=== PATIENT | male | born 1980 | race Caucasian/White ===

== ENCOUNTER 2021-03-05 19:31 | Emergency (ER) | payer OTHER ==
[2021-03-05 20:32] LABS: BASOPHILS # (AUTO) 0.1 10^3/uL (0.0-0.1); BASOPHILS % (AUTO) 1.4 %; EOSINOPHILS # (AUTO) 0.2 10^3/uL (0.0-0.7); EOSINOPHILS % (AUTO) 2.6 %; HCT - HEMATOCRIT 43.1 % (42.0-52.0); LYMPHOCYTES # (AUTO) 3.5 10^3/uL (1.5-3.5); LYMPHOCYTES % (AUTO) 44.3 %; MEAN CORPUSCULAR HEMOGLOBIN 28.9 pg (27.0-31.0); MEAN CORPUSCULAR HGB CONC 34.8 g/dL (32.0-36.0); MONOCYTES # (AUTO) 0.6 10^3/uL (0.0-1.0); MONOCYTES % (AUTO) 7.4 %; NEUTROPHILS # (AUTO) 3.4 10^3/uL (1.5-6.6); NEUTROPHILS % (AUTO) 44.2 %; PLT - PLATELET COUNT 252 10^3/uL (130-450); RED BLOOD COUNT 5.19 10^6/uL (4.70-6.10); RED CELL DISTRIBUTION WIDTH 13.8 % (12.0-15.0); WHITE BLOOD COUNT 7.8 x10^3/uL (4.8-10.8)
[2021-03-05 20:43] LABS: ALBUMIN 4.6 g/dL (3.2-5.5); ALBUMIN/GLOBULIN RATIO 1.7 (1.0-2.2); BILIRUBIN,TOTAL 0.4 mg/dL (0.2-1.0); CALCIUM 9.4 mg/dL (8.5-10.3); CREATININE 0.9 mg/dL (0.6-1.2); TOTAL PROTEIN 7.3 g/dL (6.7-8.2)
--- NOTE | 2021-03-05 20:49 | ED Physician Documentation ---
PD HPI ABD PAIN - Stated complaint Stated Complaint: ABD PX - Chief complaint Chief Complaint: Abd Pain - History obtained from History obtained from: Patient - Additional information Additional information: Patient comes emergency department chief complaint of left inguinal bulge and pain that started about 2 days ago. Patient states he has been moving and holding the left boxes and furniture. He states that any straining or movement makes the pain worse. No back pain. No difficulty controlling bowels or bladder. Patient does note that he was unable to attain an erection last night when having sexual intercourse with his . He states this is similar to symptoms he had when he had his inguinal hernia on the right several years ago. Patient states this is since been repaired. No fever or chills. No dysuria or hematuria. No nausea or vomiting. No other complaints at this time. Patient is otherwise fairly healthy. Review of Systems Ten Systems: 10 systems reviewed and negative Constitutional: reports: Reviewed and negative Eyes: reports: Reviewed and negative Ears: reports: Reviewed and negative Nose: reports: Reviewed and negative Throat: reports: Reviewed and negative Cardiac: reports: Reviewed and negative Respiratory: reports: Reviewed and negative GI: reports: Abdominal Pain : reports: Reviewed and negative Skin: reports: Reviewed and negative Musculoskeletal: reports: Reviewed and negative Neurologic: reports: Reviewed and negative Psychiatric: reports: Reviewed and negative Endocrine: reports: Reviewed and negative Immunocompromised: reports: Reviewed and negative PD PAST MEDICAL HISTORY - Past Medical History Past Medical History: Yes Cardiovascular: High cholesterol Psych: Depression Other Past Medical History: hiatal hernia - Past Surgical History Past Surgical History: Yes - Present Medications Home Medications: Ambulatory Orders Medication Instructions Recorded Confirmed Escitalopram [Lexapro] 20 mg PO DAILY 03/05/21 03/05/21 - Allergies Allergies/Adverse Reactions: Allergies Allergy/AdvReac Type Severity Reaction Status Date / Time No Known Drug Allergies Allergy Verified 03/05/21 19:33 - Social History Does the pt smoke?: Yes Smoking Status: Current every day smoker Does the pt drink ETOH?: Yes Does the pt have substance abuse?: No - Immunizations Immunizations are current?: Yes - POLST Patient has POLST: No PD ED PE NORMAL - Vitals Vital signs reviewed: Yes - General General: Alert and oriented X 3, No acute distress - HEENT HEENT: Atraumatic, PERRL, EOMI, Moist mucous membranes - Neck Neck: Supple, no meningeal sign - Cardiac Cardiac: RRR, No murmur - Respiratory Respiratory: No respiratory distress, Clear bilaterally - Abdomen Abdomen: Soft, Non distended, Other (Left inguinal bulge moderately tender. Reducible, soft.) - Male Male : Other (No scrotal edema. No skin changes.) - Derm Derm: Normal color, Warm and dry, No rash - Extremities Extremities: No deformity, No edema - Neuro Neuro: Alert and oriented X 3, car carder 2-12 intact, Normal speech, Other (Grossly normal) - Psych Psych: Normal mood, Normal affect Results - Vitals Vitals: Vital Signs - 24 hr 03/05/21 03/05/21 03/05/21 19:34 19:36 21:36 Temperature 36.5 C 36.5 C 36.5 C Heart Rate 80 80 80 Respiratory 16 16 16 Rate Blood Pressure 149/80 H 149/80 H 140/78 H O2 Saturation 98 98 99 03/05/21 03/05/21 23:00 23:29 Temperature 36.6 C 36.6 C Heart Rate 79 79 Respiratory 16 16 Rate Blood Pressure 135/72 H 135/72 H O2 Saturation 99 99 Oxygen O2 Source Room air - Labs Labs: Laboratory Tests 03/05/21 03/05/21 20:25 20:25 WBC 7.8 RBC 5.19 Hgb 15.0 Hct 43.1 MCV 83.0 MCH 28.9 MCHC 34.8 RDW 13.8 Plt Count 252 MPV 12.0 H Neut # (Auto) 3.4 Lymph # (Auto) 3.5 [place] # (Auto) 0.6 Eos # (Auto) 0.2 Baso # (Auto) 0.1 Absolute Nucleated RBC 0.00 Nucleated RBC % 0.0 Sodium 139 Potassium 4.0 Chloride 104 Carbon Dioxide 26 Anion Gap 9.0 BUN 13 Creatinine 0.9 Estimated GFR (MDRD) 93 Glucose 97 Calcium 9.4 Total Bilirubin 0.4 AST 21 ALT 25 Alkaline Phosphatase 62 Total Protein 7.3 Albumin 4.6 Globulin 2.7 Albumin/Globulin Ratio 1.7 Lipase 35 - Rads (name of study) Ct abd/pelvis Radiology: Final report received, EMP read indepedently, See rad report (Small, L fat-containing inguinal hernia; O/w NAD) PD MEDICAL DECISION MAKING - ED course Complexity details: reviewed results, re-evaluated patient, considered differential, d/w patient ED course: Patient was worked up with labs, as well as CT scan of the abdomen and pelvis. He declined symptomatic management in the ED. CT she did show a small, fat- containing left inguinal hernia. I discussed with the patient that while no emergent intervention is indicated at this time, the patient should consider following up with surgery to discuss further options electively. He for now is advised to avoid any heavy lifting or any other activities that causes strain to his abdominal cavity or the direct area of the hernia. We have discussed the usual indications for return. Departure - Departure Disposition: 01 Home, Self Care Clinical Impression: Inguinal hernia of left side without obstruction or gangrene Condition: Stable Instructions: ED Hernia Inguinal Follow-Up: Courtney Dorado MD [Provider Admit Priv/Credential] - Comments: The CT scan shows a hernia that contains some fat, but no bowel. At this time, it is recommended that you avoid any activities that cause you to strain. Please follow up with the surgeons to discuss repair of your hernia. Discharge Date/Time: 03/05/21 23:30
[2021-03-05] MEDS ORDERED: IOVERSOL 320 100 ML VIAL IVP ONE ×2 (21:09→22:06)
[2021-03-05 23:00] VITALS: BP 135/72
--- NOTE | 2021-03-06 08:01 | CT Report ---
PROCEDURE: Abdomen/Pelvis W INDICATIONS: L inguinal pain CONTRAST: IV CONTRAST: Optiray 320 ml: 100 PO CONTRAST: *NO PO CONTRAST TECHNIQUE: After the administration of intravenous contrast, 5 mm thick sections acquired from the diaphragms to the symphysis. 5 mm thick coronal and sagittal reformats were acquired. For radiation dose reducti on, the following was used: automated exposure control, adjustment of mA and/or kV according to antwan ent size. COMPARISON: None. FINDINGS: Image quality: Excellent. ABDOMEN: Lung bases: There is minimal dependent atelectasis. Heart size is normal. Solid organs: There is hypoattenuation of the liver consistent with fatty infiltration. Gallbladder a ppears within normal limits without calcified gallstones. Biliary system is non dilated. The spleen is normal in size. Pancreas enhances normally without peripancreatic fat stranding or fluid collectio ns. No adrenal nodules. Kidneys demonstrate no hydronephrosis. Peritoneum and bowel: Bowel loops demonstrate normal wall thickness and caliber. The appendix is no rmal in appearance. There is colonic diverticulosis without acute diverticulitis. No free fluid or ai r. Nodes and vessels: No retroperitoneal or mesenteric adenopathy by size criteria. Aorta and inferior vena cava are normal in size. Miscellaneous: No ventral hernias. PELVIS: Genitourinary: Bladder wall thickness is normal. Miscellaneous: There is a small fat-containing left inguinal hernia. No inguinal adenopathy. Bones: No suspicious bony lesions. No vertebral body compression fractures. IMPRESSION: 1. Small fat-containing left inguinal hernia. No evidence of bowel herniation. 2. Colonic diverticulosis without acute diverticulitis. Concordant with preliminary report. Reviewed by: Javad Alaniz MD on 03/06/2021 8:00 AM PDT Approved by: Javad Alaniz MD on 03/06/2021 8:00 AM PDT Station ID: [id number]
== END 2021-03-05 23:30 | disposition home or self-care (01) ==
LOC: ED 19:31
DX: K40.90 Unilateral inguinal hernia, without obstruction or gangrene, not specified as recurrent (principal); F17.200 Nicotine dependence, unspecified, uncomplicated
CPT/HCPCS: 36415; 74177; 80053; 83690; 85025; 99284; Q9967

== ENCOUNTER 2021-04-09 09:47 | Outpatient (CLI) | payer OTHER ==
[2021-04-09 11:04] VITALS: BP 131/90
--- NOTE | 2021-04-09 11:04 | SLEEP CARE CONSULTATION ---
Information from patient questionnaire entered by Mckayla Linares. I have reviewed and concur with the information entered by Mckayla Linares. This document represents the service I personally performed and the decisions made by me, Corin Youngblood ARNP. History of Present Illness Service Date and Time: 04/09/2021 0947 Reason for Visit: New patient Chief Complaint: reports: Insomnia, Unrefreshed sleep, Snoring, Excessive daytime sleepiness, Observed pauses in breathing, Fatigue, Frequent awakenings at night, Other (choking while sleeping) Date of Onset: at least 10 years Usual bedtime: 9 pm - 5 am Time it takes to fall asleep: 1 hour or more Snores at night: Yes Observed to quit breathing while asleep: Yes Sleeps alone due to snoring: No Number of times waking at night: numerous Reasons for waking at night: reports: Choking, Snoring, Gasping for air Toss, Turn, or Twitch while sleeping: Yes Recalls having dreams: Yes Usually gets out of bed at: depends; 5 AM Feels refreshed in the morning: No Morning headache: Yes (resloves in a couple hours; 3-4 times a week) Sleepy or fatigued during the day: Yes Ever fallen asleep while driving: Yes (drowsy driving, no accidents) Takes day naps: Yes (last 3 months, daily; progressively more tired during the day) Dreams during day naps: Yes Prior sleep studies: No Additional HPI information: I had the pleasure of seeing JOVANNY IBANEZ today regarding the possibility of him having a sleep disorder. His current complaints are excessive daytime sleepiness, fatigue, frequent night awakenings, observed pauses in breathing, snoring and unrefreshed sleep. He has had a hard time sleeping through the night for a long time. He has snored for a long time but thought this was normal. About three months ago he from his and has felt more fatigued, but thinks it was coming on before the split. His mental health therapist for his depression encouraged him to be checked for sleep apnea. He snores very loudly and can be heard in next room. He has been told that he has pauses in breathing while asleep and has woken up gasping for air or choking. He has woken up taking deep breaths and feeling like he can't breathe. He goes to bed about 9 PM and on a good night he can be asleep in about an hour. He will wake up numerous times during the night as well for different reasons. He states generally many family members snore but he doesn't know of any having sleep apnea. 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 Patient is and lives in [place]. Have you smoked in the past 12 months: No Quit date: 2 months ago Alcohol use: No Caffeine use: Yes Caffeine amount and frequency: 2 cups daily Family History Family history of sleep disordered breathing: No (unknown) Allergies and Home Medications Drug allergies reviewed: Yes (NKDA) Home medication list reviewed: Yes Allergy and home medication list: Lipitor Escitalopram Review of Systems Weight gain over past 5 years: 30 Weight loss over past 5 years: 30 Cardiovascular: reports: high blood pressure Gastrointestinal: reports: nausea. denies: heartburn Neurological: denies: headaches, head trauma Psychiatric: reports: claustrophobia Ear/Nose/Throat: reports: wisdom teeth removed. denies: injury to nose, tonsillectomy Endocrine: reports: sluggishness. denies: thyroid disease Musculoskeletal: reports: joint pain Immunologic: reports: sneezing, allergies to food or environment (seasonal) Physical Exam Blood Pressure: 131/90 Cuff size: wrist Heart Rate: 66 O2 Saturation: 98 Height: 6 ft Weight: 218 lb Body Mass Index: 29.5 BMI Classification: Overweight Neck circumference: 17.1 (inches) Mouth and throat: narrow oropharynx Soft palate: long Hard palate: normal Uvula visualization: 25% Mallampati Class III Tongue: enlarged in size with teeth jackson on lateral edges Tonsils: 1+ Neck: normal w/o lymphadenopathy or thyromegaly Heart: regular rate and rhythm Lungs: clear bilaterally Impression and Plan 1. Suspected Obstructive Sleep Apnea-Hypopnea Syndrome, as suggested by a history of loud and irregular snoring, observed cessation of breath while asleep, gasping or choking in sleep, morning headache, frequent awakening during the night, unrefreshed sleep, cognitive impairment, and excessive daytime sleepiness. Narrow oropharynx and obesity are common predisposing factors for obstructive sleep apnea-hypopnea syndrome. I recommend proceeding to polysomnography to confirm the diagnosis and to assess severity. If the patient has significant sleep disordered breathing, a manual CPAP titration study will also be performed to find the optimal treatment pressure. I informed the patient of what the sleep studies involve and after some discussion, obtained agreement to proceed. The pathophysiology of obstructive sleep apnea-hypopnea syndrome was discussed with the patient and health risks of cardiovascular and cerebr ovascular disease if not treated. Risks of drowsy driving discussed in detail and patient advised to avoid long distance driving and to pulling unit floorhand at the first sign of drowsiness. Patient agreed to plan. * Schedule polysomnography +- manual CPAP titration study and return in 1-2 weeks after the study to discuss result and initiate therapy. * Avoid long distance driving or driving when feeling sleepy. * Avoid alcohol, sedative and muscle relaxant around bedtime. * Attempt to lose weight. * Review instructions provided by trained office staff on how to prepare for the sleep study. * Return for follow-up after sleep study completed. Counseling Topics: Weight loss health impact Visit Type: In Office Time Spent with Patient (minutes): 30 Provider Statement: I spent 100% of the Face to Face Visit with the patient with greater than 50% spent counseling the patient and coordination of care.
== END 2021-04-09 09:48 | disposition home or self-care (01) ==
LOC: SC 09:47
PROVIDERS: ATTEND Nurse Practitioner Family
DX: R06.83 Snoring (principal); R06.81 Apnea, not elsewhere classified; R51.9 Headache, unspecified; G47.8 Other sleep disorders; R41.89 Other symptoms and signs involving cognitive functions and awareness; G47.10 Hypersomnia, unspecified
CPT/HCPCS: 99203; 99212

== ENCOUNTER 2021-04-15 09:29 | Outpatient (CLI) | payer OTHER | END 2021-04-15 09:30 | disposition home or self-care (01) | LOC: SC 09:29 | PROVIDERS: ATTEND Nurse Practitioner Family | DX: R06.83 Snoring (principal); R06.81 Apnea, not elsewhere classified; R51.9 Headache, unspecified; G47.10 Hypersomnia, unspecified; G47.8 Other sleep disorders; R41.89 Other symptoms and signs involving cognitive functions and awareness | CPT/HCPCS: 95806 ==

== ENCOUNTER 2021-05-05 14:27 | Outpatient (CLI) | payer OTHER ==
--- NOTE | 2021-05-05 15:17 | SLEEP CARE CONSULTATION ---
Information from patient questionnaire entered by Mckayla Linares. I have reviewed and concur with the information entered by Mckayla Linares. This document represents the service I personally performed and the decisions made by , Corin Youngblood ARNP. History of Present Illness Service Date and Time: 05/05/20211426 Initial [place] Sleepiness Scale score: 17 (in 2020) Current [place] Sleepiness Scale score: 14 Additional HPI information: JOVANNY IBANEZ returns for follow up and results of the recently performed home sleep study. The patient was informed of the following findings: He was found to have no significant sleep disordered breathing with an average AHI of 0.8 and wong oxygen saturation of 85%. I explained the pathophysiology behind obstructive sleep apnea. Patient does not have sleep apnea and was advised how weight gain could increase the risk of developing sleep apnea in the future. I strongly encouraged the patient to lose weight. Patient has mild snoring. Snoring can be reduced by weight loss. Weight loss is best achieved with diet consult. Patient instructed to contact PCP for referral. Snoring can also be treated with an oral appliance from a dentist. Advised to check insurance coverage. In addition, an ENT evaluation can be do to see if other treatment is indicated. Patient does not drink alcohol. Patient was cautioned about risks of drowsy driving until sleepiness symptoms resolve. Sleep Study - Results Type of Sleep Study: Home sleep study Prior sleep studies: No Polysomnography/Home Sleep Study results: Physician Impression: The quality of the study is good. The length of the study is adequate (> 240 minutes). Please also see the tabulated and graphic data. 1. No significant sleep disordered breathing, with an AHI of 0.8/hr and wong SaO2 of 85%. During the study, the patient had 2 apneas (2 obstructive, 0 central, 0 mixed) and 6 hypopneas. The longest episode lasted 69.0 seconds. The few respiratory events occurred more frequently during supine sleep (supine AHI was 3.7 and non-supine, 0.57). 2. Hypoxemia (ICD-10 R09.02), minimal, with the lowest oxygen saturation of 85 % and 2.6 minutes with SaO2 under 90%. Baseline oxygen saturation was normal (Average oxygen saturation was 95%). Allergies and Home Medications Home medication list reviewed: Yes (no new meds) Review of Systems Review of systems same as previous: No (inguinal hernia surgery on April 22, 2021) Physical Exam Heart Rate: 71 O2 Saturation: 98 Height: 6 ft Weight: 213 lb Body Mass Index: 28.8 BMI Classification: Overweight Impression and Plan Snoring but no significant sleep disordered breathing. Patient advised that often weight loss will reduce snoring as well as apnea risk. An oral appliance can also be used for snoring. This would require a dental consultation. Patient cautioned not to use other online appliances as can cause bite issues. A list of accredited dentists in [facility] and one local dentist who makes oral appliances available in office. Patient is advised to check if insurance will cover. An ENT consult can also be helpful to determine if any other treatment is an option. * Attempt to lose weight * Avoid alcohol consumption near bedtime * The patient is cautioned about driving until sleepiness is completely resolved. * Return as needed. Counseling Topics: Weight loss health impact Visit Type: In Office Time Spent with Patient (minutes): 10 Provider Statement: I spent 100% of the Face to Face Visit with the patient with greater than 50% spent counseling the patient and coordination of care.
== END 2021-05-05 14:28 | disposition home or self-care (01) ==
LOC: SC 14:27
PROVIDERS: ATTEND Nurse Practitioner Family
DX: R06.83 Snoring (principal)
CPT/HCPCS: 99212

== ENCOUNTER 2022-02-13 21:24 | Day surgery (SDC) | payer OTHER ==
[2022-02-13 22:21] LABS: BILIRUBIN,URINE NEGATIVE (NEGATIVE); GLUCOSE, URINE (UA) NEGATIVE (NEGATIVE); KETONES,URINE (UA) NEGATIVE (NEGATIVE); LEUKOCYTE ESTERASE, URINE NEGATIVE (NEGATIVE); NITRITE,URINE NEGATIVE (NEGATIVE); OCCULT BLOOD,URINE NEGATIVE (NEGATIVE); PROTEIN,URINE NEGATIVE (NEGATIVE); UROBILINOGEN,URINE 0.2 (NORMAL) E.U./dL (NORMAL)
[2022-02-13 22:25] LABS: CLARITY,URINE CLEAR (CLEAR)
[2022-02-13 22:33] LABS: BASOPHILS # (AUTO) 0.1 10^3/uL (0.0-0.1); BASOPHILS % (AUTO) 0.6 %; EOSINOPHILS # (AUTO) 0.2 10^3/uL (0.0-0.7); EOSINOPHILS % (AUTO) 1.3 %; HCT - HEMATOCRIT 42.7 % (42.0-52.0); HGB - HEMOGLOBIN 14.8 g/dL (14.0-18.0); LYMPHOCYTES # (AUTO) 3.5 10^3/uL (1.5-3.5); LYMPHOCYTES % (AUTO) 27.4 %; MEAN CORPUSCULAR HEMOGLOBIN 28.6 pg (27.0-31.0); MEAN CORPUSCULAR HGB CONC 34.7 g/dL (32.0-36.0); MEAN CORPUSCULAR VOLUME 82.6 fL (80.0-94.0); MEAN PLATELET VOLUME 10.8 fL (7.4-11.4); MONOCYTES # (AUTO) 0.9 10^3/uL (0.0-1.0); MONOCYTES % (AUTO) 6.9 %; NEUTROPHILS % (AUTO) 63.6 %; PLT - PLATELET COUNT 248 10^3/uL (130-450); RED BLOOD COUNT 5.17 10^6/uL (4.70-6.10); RED CELL DISTRIBUTION WIDTH 13.3 % (12.0-15.0); WHITE BLOOD COUNT 12.6 x10^3/uL (4.8-10.8)
--- NOTE | 2022-02-13 22:40 | ED Physician Documentation ---
PD HPI ABD PAIN - Stated complaint Stated Complaint: ABD PX - Chief complaint Chief Complaint: Abd Pain - History obtained from History obtained from: Patient - History of Present Illness Timing - onset: Enter time (13:30), Today Timing - details: Gradual onset, Constant Pain level now: 8 Quality: Pain Location: Other Radiation: Other (does not radiate) Improved by: Other (no ameliorating factors) Worsened by: Palpation Associated symptoms: Nausea. No: Fever, Vomiting, Diarrhea, Constipation Similar symptoms before: Has not had sx before Recently seen: Not recently seen - Additional information Additional information: c/o right-sided abdominal pain, predominantly RLQ, since 1:30 PM today with n ausea but no vomiting. Has not had these symptoms before. Review of Systems Constitutional: denies: Fever, Chills, Sweats Cardiac: reports: Reviewed and negative Respiratory: reports: Reviewed and negative GI: reports: Abdominal Pain, Nausea. denies: Abdominal Swelling, Vomiting, Co nstipation, Diarrhea : denies: Dysuria, Frequency, Hematuria Musculoskeletal: reports: Reviewed and negative PD PAST MEDICAL HISTORY - Past Medical History Cardiovascular: High cholesterol Psych: Depression - Past Surgical History Past Surgical History: Yes - Present Medications Home Medications: Ambulatory Orders Medication Instructions Recorded Confirmed Venlafaxine ER [Effexor ER] 1 cap PO QPM 02/13/22 02/13/22 - Allergies Allergies/Adverse Reactions: Allergies Allergy/AdvReac Type Severity Reaction Status Date / Time No Known Drug Allergies Allergy Verified 02/13/22 21:54 - Social History Does the pt smoke?: Yes Smoking Status: Current every day smoker Does the pt drink ETOH?: Yes Does the pt have substance abuse?: No - Immunizations Immunizations are current?: Yes - POLST Patient has POLST: No PD ED PE NORMAL - Vitals Vital signs reviewed: Yes - General General: Alert and oriented X 3, No acute distress (NAD at rest, obvious painful discomfort with movement involving lower abdomen), Well developed/nourished - HEENT HEENT: Moist mucous membranes - Cardiac Cardiac: RRR, No murmur - Respiratory Respiratory: No respiratory distress, Clear bilaterally - Abdomen Abdomen: Soft, Non distended - Back Back: No CVA TTP - Derm Derm: Normal color, Warm and dry PD ED PE EXPANDED - Abdomen Abdomen: Tender to palpation, Guarding, Other ((+) Rovsings sign). No: Rebound Results - Vitals Vitals: Vital Signs - 24 hr 02/13/22 02/13/22 02/14/22 21:51 22:33 00:00 Temperature 37.1 C 36.7 C Heart Rate 74 68 73 Heart Rate [ Brachial] Respiratory 16 16 18 Rate Blood Pressure 148/93 H 149/94 H 154/96 H Blood Pressure [Left Brachial artery] O2 Saturation 99 99 100 02/14/22 02/14/22 03:18 07:57 Temperature 36.7 C 36.9 C Heart Rate Heart Rate [ 71 73 Brachial] Respiratory 18 19 Rate Blood Pressure Blood Pressure 152/91 H 145/85 H [Left Brachial artery] O2 Saturation 100 99 Oxygen O2 Source Room air - Labs Labs: Laboratory Tests 02/13/22 02/13/22 02/13/22 22:00 22:22 22:22 WBC 12.6 H RBC 5.17 Hgb 14.8 Hct 42.7 MCV 82.6 MCH 28.6 MCHC 34.7 RDW 13.3 Plt Count 248 MPV 10.8 Neut # (Auto) 8.0 H Lymph # (Auto) 3.5 [place] # (Auto) 0.9 Eos # (Auto) 0.2 Baso # (Auto) 0.1 Absolute Nucleated RBC 0.00 Nucleated RBC % 0.0 Sodium 140 Potassium 3.9 Chloride 102 Carbon Dioxide 26 Anion Gap 12.0 BUN 20 Creatinine 1.1 Estimated GFR (MDRD) 73 L Glucose 102 H Calcium 9.4 Total Bilirubin 0.4 AST 20 ALT 28 Alkaline Phosphatase 47 Total Protein 7.3 Albumin 4.4 Globulin 2.9 Albumin/Globulin Ratio 1.5 Lipase 46 Urine Color YELLOW Urine Clarity CLEAR Urine pH 6.0 Ur Specific [place] >=1.030 H Urine Protein NEGATIVE Urine Glucose (UA) NEGATIVE Urine Ketones NEGATIVE Urine Occult Blood NEGATIVE Urine Nitrite NEGATIVE Urine Bilirubin NEGATIVE Urine Urobilinogen 0.2 (NORMAL) Ur Leukocyte Esterase NEGATIVE Ur Microscopic Review NOT INDICATED Urine Culture Comments NOT INDICATED - Rads (name of study) CT A/P with IV contrast Radiology: Prelim report reviewed, See rad report PD MEDICAL DECISION MAKING - ED course Complexity details: reviewed results, re-evaluated patient, considered differential, d/w patient ED course: CT A/P reveals early appendicitis which is c/w patient's H+P. D/W Dr. Andrea, who came to ED to evaluate patient with plan to perform appendectomy later this morning. Departure - Departure Disposition: ED Transfer to [facility] Clinical Impression: Appendicitis Condition: Good Discharge Date/Time: 02/14/22 03:15
[2022-02-13 22:49] LABS: ALBUMIN 4.4 g/dL (3.2-5.5); ALBUMIN/GLOBULIN RATIO 1.5 (1.0-2.2); BILIRUBIN,TOTAL 0.4 mg/dL (0.2-1.0); CALCIUM 9.4 mg/dL (8.5-10.3); CREATININE 1.1 mg/dL (0.6-1.2); POTASSIUM 3.9 mmol/L (3.5-5.0); TOTAL PROTEIN 7.3 g/dL (6.7-8.2)
[2022-02-13] MEDS ORDERED: SODIUM CHLORIDE 0.9% 1,000 ML IV STA (22:52)
[2022-02-13] MEDS ORDERED: ONDANSETRON 4 MG/2 ML VIAL IVP STA (23:06)
[2022-02-13] MEDS ORDERED: MORPHINE 2 MG/ML CARPUJECT IVP STA (23:06)
[2022-02-13] MEDS ORDERED: IOVERSOL 320 100 ML VIAL IVP ONE ×2 (23:17→23:56)
--- NOTE | 2022-02-14 00:19 | CT Report ---
PROCEDURE: Abdomen/Pelvis W INDICATIONS: RLQ pain, tenderness CONTRAST: IV CONTRAST: Optiray 320 ml: 100 PO CONTRAST: *NO PO CONTRAST TECHNIQUE: After the administration of IV contrast, 5 mm thick sections acquired from the diaphragms to the symp hysis. 5 mm thick coronal and sagittal reformats were acquired. For radiation dose reduction, the f ollowing was used: automated exposure control, adjustment of mA and/or kV according to patient size. COMPARISON: 03/05/2021 FINDINGS: Image quality: Excellent. ABDOMEN: Lung bases: Lung bases are clear. Heart size is normal. Solid organs: Liver and spleen are normal in size and enhancement. Gallbladder wall does not appear thickened. Biliary system is non dilated. Pancreas enhances normally. No adrenal nodules. Kidn eys demonstrate normal size and enhancement, without hydronephrosis. Peritoneum and bowel: In this patient with this given history, scrutiny is given to the appendix. Th e appendix is mildly prominent and hyperenhancing, with the tip of the appendix measuring up to 7 mm. Minimal surrounding inflammatory change can be seen. No free air or focal fluid collections are seen. No dilated loops of small bowel are seen. Diverticulosis can be seen, without kristian findings of active diverticulitis. No additional significan t colonic abnormality can be seen. Nodes and vessels: No retroperitoneal or mesenteric adenopathy by size criteria. Aorta and inferior vena cava are normal in size. Miscellaneous: No ventral hernias. PELVIS: Genitourinary: Bladder wall thickness is normal. Miscellaneous: No inguinal hernias or adenopathy. The previously seen fat containing left inguinal hernia is no longer seen. Bones: No suspicious bony lesions. No vertebral body compression fractures. Focal L4-5 degenerativ e change is seen. IMPRESSION: Acute appendicitis. No findings of perforation or abscess can be seen. Incidental note is made of: Distal colonic diverticulosis, without findings of active diverticulitis. Focal L4-L5 degenerative change Interval left inguinal hernia repair Note: Case discussed by telephone with Dr. Min at 11:15 PM [place] time on 02/13/2022. Reviewed by: Ryan Ortiz MD on 02/13/2022 11:21 PM [facility] Approved by: Ryan Ortiz MD on 02/13/2022 11:21 PM [facility] Station ID: [id number]
[2022-02-14] MEDS ORDERED: ONDANSETRON 4 MG/2 ML VIAL IVP PRN ×2 (01:01→07:52)
[2022-02-14] MEDS ORDERED: SODIUM CHLORIDE FLUSH 0.9% 10 ML SYRINGE IVP PRN (01:01)
[2022-02-14] MEDS: MORPHINE 2 MG/ML CARPUJECT IVP PRN ×3 (01:48→06:55)
[2022-02-14] MEDS ORDERED: PIPERACILLIN/TAZOBACTAM 3.375 GM in SODIUM CHLORIDE 0.9% MINIBAG 100 ML IV STA (02:00)
[2022-02-14] MEDS ORDERED: LACTATED RINGERS 1,000 ML IV SCH ×2 (02:00→08:00)
--- NOTE | 2022-02-14 07:38 | ANESTHESIA ---
Pre-Anesthesia VS, & Labs - Diagnosis appendecitis - Procedure laparoscopic appendectomy Vital Signs: Temp Pulse Resp BP Pulse Ox 36.7 C 71 18 152/91 H 100 02/14/22 03:18 02/14/22 03:18 02/14/22 03:18 02/14/22 03:18 02/14/22 03:18 Height: 6 ft 1 in Weight (kg): 99.79 kg Body Mass Index: 29.0 BMI Classification: Overweight - NPO >8 hours - Lab Results Current Lab Results: Laboratory Tests 02/13/22 22:22: Sodium 140, Potassium 3.9, Chloride 102, Carbon Dioxide 26, Anion Gap 12.0, BUN 20, Creatinine 1.1, Estimated GFR (MDRD) 73 L, Glucose 102 H , Calcium 9.4, Total Bilirubin 0.4, AST 20, ALT 28, Alkaline Phosphatase 47, Total Protein 7.3, Albumin 4.4, Globulin 2.9, Albumin/Globulin Ratio 1.5, Lipase 46 02/13/22 22:22: WBC 12.6 H, RBC 5.17, Hgb 14.8, Hct 42.7, MCV 82.6, MCH 28.6, MCHC 34.7, RDW 13.3, Plt Count 248, MPV 10.8, Neut # (Auto) 8.0 H, Lymph # (Auto) 3.5, [place] # (Auto) 0.9, Eos # (Auto) 0.2, Baso # (Auto) 0.1, Absolute Nucleated RBC 0.00, Nucleated RBC % 0.0 Lab results reviewed: Yes Fish Bones: 02/13/22 22:22 02/13/22 22:22 Home Medications and Allergies Home Medications: Ambulatory Orders Venlafaxine ER [Effexor ER] 1 cap PO QPM 02/13/22 Active Medications Heparin Sodium (Porcine) (Heparin 5,000 Unit/Ml Vial) 5,000 unit SUBQ BID GANESH Lactated Ringer's (Lr) 1,000 mls @ 100 mls/hr IV .Q10H GANESH Last Admin: 02/14/22 03:16 Dose: 100 mls/hr Morphine Sulfate (Morphine 2 Mg/Ml Carpuject) 2 mg IVP Q2HR PRN PRN Reason: Pain 8 to 10 Last Admin: 02/14/22 06:55 Dose: 2 mg Ondansetron HCl (Ondansetron 4 Mg/2 Ml Vial) 4 mg IVP Q6HR PRN PRN Reason: Nausea / Vomiting Sodium Chloride (Sodium Chloride Flush 0.9% 10 Ml Syringe) 10 ml IVP PRN PRN PRN Reason: NEEDED PER PROVIDER ORDERS Last Admin: 02/14/22 03:17 Dose: 10 ml Sodium Chloride (Sodium Chloride Flush 0.9% 10 Ml Syringe) 10 ml IVP 0100,0900,1700 [facility] Venlafaxine ER [Effexor ER] 1 cap PO QPM 02/13/22 Allergies/Adverse Reactions: Allergies Allergy/AdvReac Type Severity Reaction Status Date / Time No Known Drug Allergies Allergy Verified 02/13/22 21:54 Anes History & Medical History - Anesthetic History Anesthesia Complications: reports: Emergence delirium Family history of Anesthesia Complications: Denies Family history of Malignant Hyperthermia: Denies - Medical History Cardiovascular: reports: High cholesterol Smoking Status: Current every day smoker Exam General: Alert, Oriented x3, Cooperative, No acute distress Dental: WNL Mouth Openin Fingerbreadth Neck Mobility: Normal Mallampati classification: II Plan Anesthesia Type: General Consent for Procedure(s) Verified and Reviewed: Yes Code Status: Attempt Resuscitation ASA classification: 2-Mild systemic disease Is this case an emergency?: No
[2022-02-14] MEDS ORDERED: KETOROLAC 30 MG/ML VIAL ONE (07:42)
[2022-02-14] MEDS ORDERED: PROPOFOL 200 MG/20 ML VIAL IVP ONE (07:42)
[2022-02-14] MEDS ORDERED: LIDOCAINE-MPF 2% 5 ML VIAL ONE (07:42)
[2022-02-14] MEDS ORDERED: DEXAMETHASONE 4 MG/ML VIAL ONE (07:42)
[2022-02-14] MEDS ORDERED: fentaNYL 100 MCG/2 ML VIAL ONE ×2 (07:42→09:48)
[2022-02-14] MEDS ORDERED: ROCURONIUM 50 MG/5 ML VIAL ONE (07:42)
[2022-02-14] MEDS ORDERED: ONDANSETRON 4 MG/2 ML VIAL ONE (07:42)
--- NOTE | 2022-02-14 07:43 | HISTORY & PHYSICAL EXAMINATION ---
Chief Complaint - Chief Complaint Chief Complaint: Abdominal pain History of Present Illness - Admitted From Admitted From:: ED - History of Present Illness HPI Comment/Other: 41 year old man who presents with abdominal pain. Pain started at 11am yesterday and was diffuse, then later localized to the right lower abdomen. He has had associated anorexia but no nausea, emesis, diarrhea. Worse with pressure and mov ement. No alleviating factors. Presented to ED because pain has been worsening throughout the day. History - Past Medical History Cardiovascular: reports: Hypertension, High cholesterol Psych: reports: Depression MRSA Hx?: No - Past Surgical History General: reports: Other (Bilateral open inguinal hernia repairs) - Family & Social History Family History Comment/Other: No family history of any genetic conditions Living arrangement: At home Living Situation: Other (with girlfriend, Nina. 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 ) - Substance History Tobacco Details: Other (Vapor tobacco) - POLST Patient has POLST: No Meds/Allgy - Home Medications Home Medications: Ambulatory Orders Medication Instructions Recorded Confirmed Venlafaxine ER [Effexor ER] 1 cap PO QPM 02/13/22 02/13/22 - Allergies Allergies/Adverse Reactions: Allergies Allergy/AdvReac Type Severity Reaction Status Date / Time No Known Drug Allergies Allergy Verified 02/13/22 21:54 Review of Systems - Constitutional Constitutional: reports: Poor appetite - Gastrointestinal Gastrointestinal: reports: Abdominal pain, Poor appetite. denies: Constipation, Diarrhea, Nausea, Vomiting - All Other Systems All Other Systems: reports: Reviewed and negative Exam - Vital Signs Reviewed Vital Signs: Yes Vital Signs: Vital Signs x48h Temp Pulse Pulse Resp BP BP Pulse Ox 02/14/22 03:18 36.7 C 71 18 152/91 H 100 02/14/22 00:00 73 18 154/96 H 100 - Physical Exam General Appearance: positive: No acute distress Eyes Bilateral: positive: Normal inspection ENT: positive: ENT inspection nml Neck: positive: Nml inspection Respiratory: positive: No respiratory distress Cardiovascular: positive: Regular rate & rhythm Abdomen: positive: Other (Soft, non distended, tender in right lower quadrant wi th voluntary guarding, positive Rovsing's sign. Bilateral groin scars without hernias.) Skin: positive: Color nml, No rash, Warm, Dry Extremities: positive: Full ROM, Nml appearance Neurologic/Psychiatric: positive: Oriented x3, CN's nml (2-12) Sepsis Event Note (H) - Evaluation Current Stage of Sepsis: Ruled out Conclusion/Plan - Problem List (1) Appendicitis Conclusion/Plan: Acute appendicitis: Start IV zosyn and plan for laparoscopic appendectomy. Surgical risks and benefits discussed. Kei Andrea MD Qualifiers: Appendicitis type: acute appendicitis Acute appendicitis type: with localized peritonitis Appendicitis gangrene presence: without gangrene Appendicitis perforation presence: without perforation Appendicitis abscess presence: without abscess Qualified Code(s): K35.30 - Acute appendicitis with localized peritonitis, without perforation or gangrene - Lab Results Lab results reviewed: Yes Fish Bones: 02/13/22 22:22 02/13/22 22:22 - Diagnostic Imaging Results Diagnostic Imaging Results: positive: Final report reviewed (Appendix borderline dilated with surrounding fat stranding)
[2022-02-14] MEDS ORDERED: NALOXONE 0.4 MG/ML VIAL IVP PRN (07:52)
[2022-02-14] MEDS ORDERED: MORPHINE 2 MG/ML CARPUJECT IVP PRN (07:52)
[2022-02-14] MEDS ORDERED: ePHEDrine 50 MG/ML VIAL IVP PRN (07:52)
[2022-02-14] MEDS ORDERED: HYDROmorphone 0.5 MG/0.5 ML SYRINGE IVP PRN (07:52)
[2022-02-14] MEDS ORDERED: ATROPINE ABBOJECT 1 MG/10 ML SYRINGE IVP PRN (07:52)
[2022-02-14] MEDS ORDERED: fentaNYL 100 MCG/2 ML VIAL IVP PRN (07:52)
[2022-02-14] MEDS ORDERED: METOCLOPRAMIDE 10 MG/2 ML VIAL IVP PRN (07:52)
[2022-02-14] MEDS ORDERED: MIDAZOLAM 2 MG/2 ML VIAL ONE (07:59)
[2022-02-14] MEDS ORDERED: BUPIVACAINE 0.5% PF 30 ML VIAL ONE (08:15)
[2022-02-14] MEDS ORDERED: LACTATED RINGERS 1,000 ML IV ONE ×2 (08:33→09:15)
[2022-02-14] MEDS ORDERED: SODIUM CHLORIDE FLUSH 0.9% 10 ML SYRINGE IVP SCH (09:00)
[2022-02-14] MEDS ORDERED: HEPARIN 5,000 UNIT/ML VIAL SUBQ SCH (09:00)
[2022-02-14] MEDS ORDERED: DEXMEDETOMIDINE 200 MCG/2 ML VIAL ONE (09:19)
[2022-02-14] MEDS ORDERED: SUGAMMADEX 200 MG/2 ML VIAL IVP ONE (09:35)
--- NOTE | 2022-02-14 09:58 | OPERATIVE REPORT ---
Operative Report - General Procedure Date: 02/14/22 Planned Procedure: Laparoscopic appendectomy Pre-Op Diagnosis: Acute appendicitis Procedure Performed: Laparoscopic appendectomy and umbilical hernia repair Post Op Diagnosis: Acute appendicitis and umbilical hernia - Procedure Note Primary Surgeon: Kei Andrea Anesthesia Provider: Charan Maciel Anesthesia Technique: General ET tube Estimated Blood Loss (mL): 5 (ml) Urine Output (mL): 100 (ml) Indications: 41 year old man who presented with one day of abdominal pain and found to have leukocytosis and CT demonstrating acute appendicitis. Findings: Inflamed appendix and fat containing umbilical hernia Complications: None apparent - Other Other Information/Narrative: After receiving preoperative antibiotics, the patient was taken tot he operating room where SCDs were placed. After starting general anesthesia, a rivas catheter was placed. THe abdomen was prepped and draped. Local anesthesia (0.5% bupivacaine) was administered at the infraumbilical skin where a transverse incision was then made and carried down to the fascia, where a fat containing umbilical hernia was encoutnered.. The peritoneal cavity was entered with Geovanni technique. A 12mm balloon trocar was placed and pneumoperitoneum achieved. A 10- 30 laparoscope was introduced and peritoneal contents inspected. An inflamed appendix was noted in the right lower quadrant. Two more 5mm ports were placed under direct vision in the suprapubic and left lower quadrant and the patient was positioned in trendelenburg and right side up. The appendix was grasped, mesoappendix taken with a LigaSure energy device, and appendix stapled at the base with a 30mm EndoGIA stapler intestinal laod. Some simple fluid in the abdomen was suctioned, and the staple line inspected demonstrating no bleeding or breakdown. The appendix was removed using an Endocatch bag, pneumoperitoneum evacuated, and trocars removed. The umbilical hernia was closed with 0-vicryl suture and all skin sites closed with 4-0 monocryl and surgical glue. All instrument coutns were reported correct. The rivas was removed, and patient was awakened and taken to the recovery room in good condition.
[2022-02-14] MEDS ORDERED: traMADol 50 MG TABLET PO PRN (10:09)
--- NOTE | 2022-02-14 10:16 | Discharge Plan ---
Discharge Plan Problem Reviewed?: Yes Disposition: 01 Home, Self Care Condition: Good Prescriptions: traMADol [Ultram] 50 mg PO Q6H PRN #10 tablet PRN Reason: Pain Diet: Regular Activity Restrictions: No heavy lifting for 4wk Shower Restrictions: No (Showers are okay, but no baths for 2 weeks) Driving Restrictions: Yes (No driving while taking Tramadol) Additional Instructions or Follow Up instructions: Call the general surgery clinic on a weekday to schedule to be seen for postop visit in 1-2 weeks No Smoking: If you smoke, Please STOP! Call for help.
--- NOTE | 2022-02-14 10:20 | ANESTHESIA POST OP EVALUATION ---
Anesthesia Post Eval - Post Anesthesia Eval Vitals: Last Vital Signs Temp 36.5 C 02/14/22 10:15 Pulse 77 02/14/22 10:15 Resp 18 02/14/22 10:15 BP 108/64 02/14/22 10:15 Pulse Ox 95 02/14/22 10:15 CV Function Including HR & BP: Stable Pain Control: Satisfactory Nausea & Vomiting: Negative Mental Status: Baseline Respiratory Status: Airway Patent Hydration Status: Satisfactory Anesthesia Complications: None
[2022-02-14 10:32] VITALS: BP 123/44
[2022-02-14] MEDS ORDERED: KETOROLAC 15 MG/ML VIAL IVP PRN (12:00)
== END 2022-02-14 14:55 | disposition home or self-care (01) ==
LOC: ED 21:24 → SDS 02-14 01:36 → MS3 02-14 02:23 → SDS 02-14 14:55
PROVIDERS: ATTEND Surgery
PROC: 0DTJ4ZZ Resection of Appendix, Percutaneous Endoscopic Approach (ICD-10-PCS; principal; 2022-02-14 08:15)
DX: K35.30 Acute appendicitis with localized peritonitis, without perforation or gangrene (principal); K42.9 Umbilical hernia without obstruction or gangrene; I10 Essential (primary) hypertension; F32.A Depression, unspecified; F17.290 Nicotine dependence, other tobacco product, uncomplicated
CPT/HCPCS: 36415; 44970; 74177; 80053; 81003; 83690; 85025; 96374; 96375; 99284; 99285; J7120; Q9967; 81001; 87086

== ENCOUNTER 2022-04-16 17:37 | Emergency (ER) | payer OTHER ==
[2022-04-16 17:53] VITALS: BP 162/98
--- OUTSIDE RECORDS SUMMARY | 2022-04-16 17:54 | EXTERNAL MEDICAL SUMMARY RPT | Continuity of Care Document ---
:1980 Author Organization [place] Address [address] [place] [address] Phone Allergies No information. Encounters No information. Functional Status No information. Immunizations No information. Medications date description facility +0000 escitalopram oxalate All +0000 escitalopram oxalate All +0000 escitalopram oxalate All [id number]+0000 escitalopram oxalate All Problems No information. Procedures No information. Results/Labs No information. Social History No information. Vital Signs date measurement value units +0000 BMI BMI 33.21 kg/m2 +0000 BP_diastolic BP_diastolic 89 mm[H g] +0000 BP_systolic BP_systolic 128 mm[Hg] +0000 heart_rate heart_rate 78 /min +0000 height_metric height_metric 182.88 cm +0000 height_standard height_standard 72 in +0000 respiration_rate respiration_rate 16 /min +0000 temperature_metric temperature_metric 36.22 C +0000 temperature_standard temperature_standard 9 7.2 F +0000 weight_metric weight_metric 110.68 kg +0000 weight_standard weight_standard 244 lb
--- NOTE | 2022-04-16 18:14 | XRAY Report ---
PROCEDURE: Hand 3 View LT INDICATIONS: Trauma TECHNIQUE: 3 views of the hand(s) acquired. COMPARISON: None FINDINGS: Bones: Minimally angulated fifth metacarpal neck fracture. This is seen best on the oblique view. Pro ximal and distal joints are normally aligned. No other fractures. No suspicious bony lesions. Soft tissues: No suspicious soft tissue calcifications. IMPRESSION: Minimally angulated fifth metacarpal neck fracture. Reviewed by: Alma García MD on 04/16/2022 6:13 PM PDT Approved by: Alma García MD on 04/16/2022 6:13 PM PDT Station ID: [id number]
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
== END 2022-04-16 19:11 | disposition home or self-care (01) ==
LOC: ED 17:37
DX: S62.367A Nondisplaced fracture of neck of fifth metacarpal bone, left hand, initial encounter for closed fracture (principal); W22.8XXA Striking against or struck by other objects, initial encounter; Y93.B9 Activity, other involving muscle strengthening exercises; F17.200 Nicotine dependence, unspecified, uncomplicated
CPT/HCPCS: 29125; 99283

== ENCOUNTER 2022-11-19 09:56 | Outpatient (CLI) | payer OTHER ==
[2022-11-19 10:19] VITALS: BP 140/90
--- NOTE | 2022-11-19 10:19 | SLEEP CARE CONSULTATION ---
Information from patient questionnaire entered by Dena Manning. I have reviewed and concur with the information entered by Dena Manning. This document represents the service I personally performed and the decisions made by me, Corin Youngblood ARNP. History of Present Illness Service Date and Time: 11/19/2022 0956 Reason for follow up: annual (LAST SEEN 04/2021 PT WANTS SLEEP STUDY SXS WORSE) Prior sleep studies: Yes Type of Sleep Study: Home sleep study HPI additional information: I had the pleasure of seeing JOVANNY IBANEZ today regarding the possibility of him having a sleep disorder. His current complaints are loud snoring, frequent night awakening, wake in up with sore throat, wakes up choking and unrefreshed sleep. The patient tells me that he normally goes to bed around 10 pm, and it takes him approximately 10-45 minutes to fall asleep depending on if he takes melatonin. He has been told that he snores loudly and irregularly at night. He has been observed to stop breathing in his sleep. His bed partner can still sleep in the same bed. He can recall waking up on the average of 3-4 times during the night. Most of the time he wakes up because of unknown, gasping or choking and snoring. He has occasionally awakened for his own snoring, choking, and having to gasp for air. There is a lot of tossing and turning in his sleep. Generally he can recall having dreams. He usually wakes up at [id number] and does not feel refreshed. He usually does have a morning headache. During the day he complains of feeling sleepy and fatigued. He has never fallen asleep while driving nor has any accide nt due to sleepiness. He usually naps for about 15-60 minutes during the day. If he naps, upon falling asleep during the day he admits to having vivid dreams. There is no somniloquy (sleep talking) but no somnambulism (sleep walking). He has never experienced sleep paralysis or symptoms of restless leg syndrome. He reports having impaired concentration during the day. Sleep Study - Results Type of Sleep Study: Home sleep study Prior sleep studies: No Subjective Initial [place] Sleepiness Scale score: 17 (in 2020) Current [place] Sleepiness Scale score: 12 (11/19/22) Allergies and Home Medications Known drug allergies: No Drug allergies reviewed: Yes Home medication list reviewed: Yes (Lipitor 20 mg dialy; temp Hydrocodone for pain) Review of Systems Review of systems same as previous: No (ganglion cyst removed from left wrist on 11/17/2022) Physical Exam Vital signs obtained and entered by: DENA Ricardo MA Blood Pressure: 140/90 (LEFT ARM) Cuff size: regular Heart Rate: 76 O2 Saturation: 96 Height: 6 ft 1 in Weight: 252 lb Weight change since last visit: 39 lb gain Body Mass Index: 33.2 BMI Classification: Obese Impression and Plan 1. Suspected Obstructive Sleep Apnea-Hypopnea Syndrome, as suggested by a hi story of loud and irregular snoring, observed cessation of breath while asleep, gasping or choking in sleep, frequent awakening during the night, unrefreshed sleep, cognitive impairment, and excessive daytime sleepiness. He has gained almost 40 pounds since his last sleep study. I recommend proceeding to polysomnography to confirm the diagnosis and to assess severity. I obtained agreement to proceed. The pathophysiology of obstructive sleep apnea-hypopnea syndrome was discussed with the patient and health risks of cardiovascular and cerebrovascular disease if not treated. Risks of drowsy driving discussed in detail and patient advised to avoid long distance driving and to veneer puller at the first sign of drowsiness. Patient agreed to plan. * Schedule polysomnography * Avoid long distance driving or driving when feeling sleepy. * Avoid alcohol, sedative and muscle relaxant around bedtime. * Attempt to lose weight. * Review instructions provided by trained office staff on how to prepare for the sleep study. * Return for follow-up after sleep study completed. Counseling Topics: Weight loss health impact Visit Type: In Office Time Spent with Patient (minutes): 20 Provider Statement: I spent 100% of the Face to Face Visit with the patient with greater than 50% spent counseling the patient and coordination of care.
== END 2022-11-19 09:57 | disposition home or self-care (01) ==
LOC: SC 09:56
PROVIDERS: ATTEND Nurse Practitioner Family
DX: R06.83 Snoring (principal); G47.8 Other sleep disorders; R06.81 Apnea, not elsewhere classified; R51.9 Headache, unspecified; G47.10 Hypersomnia, unspecified; I10 Essential (primary) hypertension; E66.9 Obesity, unspecified; Z68.33 Body mass index [BMI] 33.0-33.9, adult
CPT/HCPCS: 99212; 99213

== ENCOUNTER 2022-12-19 20:31 | Outpatient (CLI) | payer OTHER | END 2022-12-19 20:32 | disposition home or self-care (01) | LOC: SC 20:31 | PROVIDERS: ATTEND Nurse Practitioner Family | DX: G47.33 Obstructive sleep apnea (adult) (pediatric) (principal); E66.9 Obesity, unspecified; Z68.33 Body mass index [BMI] 33.0-33.9, adult | CPT/HCPCS: 95810 ==

== ENCOUNTER 2022-12-28 10:41 | Outpatient (CLI) | payer OTHER ==
[2022-12-28 11:21] VITALS: BP 128/88
--- NOTE | 2022-12-28 11:21 | SLEEP CARE CONSULTATION ---
Information from patient questionnaire entered by Marleny Manning. I have reviewed and concur with the information entered by Marleny Manning. This document represents the service I personally performed and the decisions made by me, Corin Youngblood ARNP. History of Present Illness Service Date and Time: 12/28/2022 1041 Initial [place] Sleepiness Scale score: 17 (in 2020) Current [place] Sleepiness Scale score: 14 (12/28/22) Additional HPI information: JOVANNY IBANEZ returns for follow up and results of the recently performed polysomnography. I explained the pathophysiology behind obstructive sleep apnea. We then spent quite a bit of time discussing different treatment options. For mild obstructive sleep apnea, surgery and oral appliance are alternatives to nasal CPAP therapy but in moderate or severe cases, nasal CPAP is the most effective and reliable treatment. Because apnea is primarily in supine position, then positional management therapy could be effective. Methods discussed such as positioning with pillows, using a T-shirt with tennis balls in the back or commercial products that have a pillow format on back to prevent supine sleep. I reviewed the impact of weight changes on sleep apnea and strongly recommended losing weight. After some discussion, the patient opted to go with the nasal CPAP therapy. Nasal autoCPAP set at 4-15 cmH20 will be ordered with rationale explained. A manual titration study will be ordered if unable to find optimal pressure with office adjustments. I explained how CPAP machine works and what to expect when using the machine. Using CPAP every night in order to get used to it was emphasized. Patient advised to put CPAP mask on before getting into bed so as not to fall asleep without CPAP. To assist acclimation to CPAP use, it could also be used for a short time during day while reading or watching TV. The patient was instructed to call the CPAP supplier to discuss any mechanical problem that may occur. If the mask given is uncomfortable or is difficult to keep on through the night even with adjustment, contact the CPAP supplier as many will replace with another mask style if notified before 30 days. If snoring or perceives is not getting enough air or too much air from the machine, notify this office. Patient does not drink alcohol. Patient was cautioned about risks of drowsy driving until sleepiness symptoms resolve. Sleep Study - Results Type of Sleep Study: Polysomnography (COMPLETED 12/19/22) Prior sleep studies: No Polysomnography/Home Sleep Study results: IMPRESSION: The quality of the study is good. The patient had minimally reduced sleep efficiency. The sleep architecture was abnormal for sleep fragmentation and reduced amount of time spent in slow wave sleep (N3). Respiratory monitoring showed mild obstructive sleep apnea-hypopnea (AHI = 8.7) associated with frequent arousals, oxyhemoglobin desaturation and mild hypoxia (wong oxygen saturation of 86%). The respiratory events occurred almost exclusively during supine sleep (supine AHI = 53.1; non-supine = 4.44). Snore was moderate in intensity. There was no significant periodic leg movement of sleep. Cardiac rhythm was normal sinus rhythm without significant arrhythmia. No abnormal behavior (parasomnia) observed during the night. Allergies and Home Medications Known drug allergies: No Drug allergies reviewed: Yes Home medication list reviewed: Yes (no changes) Review of Systems Review of systems same as previous: Yes (no changes) Physical Exam Vital signs obtained and entered by: MARLENY Ricardo MA Blood Pressure: 128/88 (LEFT ARM) Cuff size: regular Heart Rate: 85 O2 Saturation: 98 Height: 6 ft 1 in Weight: 247 lb 9.6 oz Body Mass Index: 32.6 BMI Classification: Obese Impression and Plan 1. Obstructive Sleep Apnea-Hypopnea Syndrome, mild, with lowest oxygen saturation of 86%. Obviously this is the cause of the patients symptoms of unrefreshed sleep, and excessive daytime sleepiness. Positive pressure therapy could benefit depression. As mentioned above, the patient will be started on nasal autoCPAP therapy with pressure set at 4-15 cmH2O. Compliance guidelines also reviewed. A copy of compliance guidelines will be given for reference at check out. Because the apnea is more severe supine, I instructed to avoid sleeping supine using pillow positioning until able to start CPAP use. 2. Obesity, unspecified. Currently patients BMI is 32.6. Obesity increases the risk of apnea, CPAP pressure requirements and overall health risks especially cardiovascular and diabetes. Thus patient is advised to lose weight. * Nasal auto CPAP therapy, pressure at 4-15 cm H2O. * Attempt to lose weight. * Avoid alcohol consumption near bedtime. * Avoid supine sleep until using CPAP. * The patient is again cautioned about driving until sleepiness completely resolves. * Return one month after CPAP obtained. I will assess response to therapy and compliance at that time. Counseling Topics: Weight loss health impact Visit Type: In Office Time Spent with Patient (minutes): 20 Provider Statement: I spent 100% of the Face to Face Visit with the patient with greater than 50% spent counseling the patient and coordination of care.
== END 2022-12-28 10:42 | disposition home or self-care (01) ==
LOC: SC 10:41
PROVIDERS: ATTEND Nurse Practitioner Family
DX: G47.33 Obstructive sleep apnea (adult) (pediatric) (principal); E66.9 Obesity, unspecified; Z68.32 Body mass index [BMI] 32.0-32.9, adult
CPT/HCPCS: 99212; 99213

== ENCOUNTER 2023-02-22 13:05 | Outpatient (CLI) | payer OTHER ==
--- NOTE | 2023-02-22 13:38 | Sleep Patient Instructions ---
Sleep Center Visit Summary - Patient Visit Information Reason for Visit: First compliance followup with CPAP therapy - Patient Instructions Additional Instructions: You were here for follow up of CPAP therapy. You will be continued on CPAP therapy with pressure at 6-10 cmH2O. Please let us know if the pressure change is uncomfortable and we can make further adjustments of the pressure. You should follow up with sleep care in 1-2 months. You may contact us sooner for any questions or concerns. - Clinic Information Contact: [facility] [address] [place] [address] [email or web address] T: [phone]
--- NOTE | 2023-02-22 13:41 | SLEEP CARE CONSULTATION ---
Information from patient questionnaire entered by Dena Manning. I have reviewed and concur with the information entered by Dena Manning. This document represents the service I personally performed and the decisions made by , Corin Youngblood ARNP. History of Present Illness Service Date and Time: 02/22/2023 1305 Previous diagnosis: Mild, Obstructive Sleep Apnea-Hypopnea Syndrome AHI: 8.7 (in 11/2022) Reason for follow up: first compliance Equipment type: CPAP (RESMED Airsense 11, s/u 12/2022) Equipment obtained from: Other ([facility]) Mask style: Nasal Backup mask available: No (will keep old mask when replaced) Last cushion change: 1 month or so Prior sleep studies: No Type of Sleep Study: Polysomnography (COMPLETED 12/19/22) HPI additional information: JOVANNY IBANEZ was diagnosed to have mild, AHI 8.7, obstructive sleep apnea- hypopnea syndrome and returned today for CPAP therapy first compliance follow- up. Sleep Study - Results Type of Sleep Study: Polysomnography (COMPLETED 12/19/22) Prior sleep studies: No CPAP Compliance Data - Data Reviewed with Patient Average duration of nightly device use: 5 hours 0 minutes Compliance rate %: 63 ( days used ) Current pressure setting (cmH2O): 4-15 (median 5.7, avg 8.7, max 10.9) Average residual AHI: 0.9 Central apnea: 0.2 Obstructive apnea: 0.3 Average large leak: 3.6 lpm Subjective Missed days of use due to: reports: mask issues Patient concerns: reports: mask discomfort (just getting used to it). denies: aerophagia, air blowing in eyes, mask leak noise, condensation in mask/hose, nasal congestion, dry mouth, nose, throat, epistaxis Observed to snore while using device: No Current pressure setting perceived as: comfortable On therapy, patient: reports: sleeping better, awakening more refreshed, being more awake and alert during the day, more rested overall. denies: drowsiness while driving Initial [place] Sleepiness Scale score: 17 (in 2020) Current [place] Sleepiness Scale score: 11 (02/22/23) Allergies and Home Medications Known drug allergies: No Drug allergies reviewed: Yes Home medication list reviewed: Yes (no changes) Allergy and home medication list: Allergies No Known Drug Allergies Allergy (Verified 12/28/22 10:45) Review of Systems Review of systems same as previous: Yes (no changes) Physical Exam Vital signs obtained and entered by: DENA Ricardo MA Blood Pressure: 128/76 (LEFT ARM) Cuff size: regular Heart Rate: 73 O2 Saturation: 98 Height: 6 ft 1 in Weight: 248 lb 3.2 oz Body Mass Index: 32.7 BMI Classification: Obese Impression and Plan 1. Obstructive Sleep Apnea-Hypopnea Syndrome, mild, with fair treatment compliance and good apnea control. On CPAP therapy, the patient has better sleep quality and is more rested overall. I encouraged him to continue to try to increase time in the mask to get his compliance up. He voiced understanding. Patient has significant improvement of their sleep apnea and is satisfied with current CPAP therapy. The patients pressure will be changed to autoCPAP 6-10 cmH20 to reflect pressure being used. Patient advised to contact me if pressure change is uncomfortable so that it can be adjusted. Goals for apnea control discussed. Patient's apnea severity and rationale for treatment to reduce apnea, improve sleep quality and reduce cardiovascular and cerebrovascular events was reviewed. I also reviewed the benefit of consistent device use of CPAP for depression. 2. Obesity, unspecified. Currently patients BMI is 32.7. Obesity increases the risk of apnea, CPAP pressure requirements and overall health risks especially cardiovascular and diabetes. Thus patient is advised to lose weight. * Change auto CPAP pressure to 6-10 cmH2O * Notify me if snoring with mask or feeling that the pressure is too much or too little * Attempt to lose weight * Call this office if any problems using CPAP * Return for follow up in 1-2 months, or sooner if concerns arise Counseling Topics: Spare mask, Weight loss health impact Visit Type: In Office Time Spent with Patient (minutes): 21 Provider Statement: I spent 100% of the Face to Face Visit with the patient with greater than 50% spent counseling the patient and coordination of care.
[2023-02-22 13:49] VITALS: BP 128/76
== END 2023-02-22 13:06 | disposition home or self-care (01) ==
LOC: SC 13:05
PROVIDERS: ATTEND Nurse Practitioner Family
DX: G47.33 Obstructive sleep apnea (adult) (pediatric) (principal); E66.9 Obesity, unspecified; Z68.32 Body mass index [BMI] 32.0-32.9, adult
CPT/HCPCS: 99212; 99213

== ENCOUNTER 2023-03-23 08:29 | Outpatient (CLI) | payer OTHER ==
--- NOTE | 2023-03-23 08:44 | Sleep Patient Instructions ---
Sleep Center Visit Summary - Patient Visit Information Reason for Visit: 1 Month followup for CPAP therapy - Patient Instructions Additional Instructions: You were here for follow up of CPAP therapy. You will be continued on CPAP therapy with pressure at 6-10 cmH2O. You should follow up with sleep care in 3 months. You may contact us sooner for any questions or concerns. - Clinic Information Contact: [facility] [address] [place] [address] [email or web address] T: [phone]
--- NOTE | 2023-03-23 08:48 | SLEEP CARE CONSULTATION ---
Information from patient questionnaire entered by Dena Manning. I have reviewed and concur with the information entered by Dena Manning. This document represents the service I personally performed and the decisions made by , Corin Youngblood ARNP. History of Present Illness Service Date and Time: 03/23/2023828 Previous diagnosis: Mild, Obstructive Sleep Apnea-Hypopnea Syndrome AHI: 8.7 (in 11/2022) Reason for follow up: one month (F/U ) Equipment type: CPAP (RESMED Airsense 11, s/u 12/2022) Equipment obtained from: Other ([facility]; getting supplies) Mask style: Nasal Mask brand: Respironics Backup mask available: No (will keep old mask when replaced) Last cushion change: last week Prior sleep studies: No Type of Sleep Study: Polysomnography (COMPLETED 12/19/22) HPI additional information: JOVANNY IBANEZ was diagnosed to have mild, AHI 8.7, obstructive sleep apnea- hypopnea syndrome and returned today for CPAP therapy one month follow-up. Sleep Study - Results Type of Sleep Study: Polysomnography (COMPLETED 12/19/22) Prior sleep studies: No CPAP Compliance Data - Data Reviewed with Patient Average duration of nightly device use: 5 HRS 37 MIN Compliance rate %: 83 (02/20/23-03/21/23; days used) Current pressure setting (cmH2O): 6-10 Average residual AHI: 0.7 Central apnea: 0.1 Obstructive apnea: 0.3 Average large leak: 2.6 L/pm Subjective Patient concerns: denies: aerophagia, mask discomfort, air blowing in eyes, mask leak noise, condensation in mask/hose, nasal congestion, dry mouth, nose, throat, epistaxis Observed to snore while using device: No Current pressure setting perceived as: comfortable On therapy, patient: reports: sleeping better, awakening more refreshed, being more awake and alert during the day, more rested overall. denies: drowsiness while driving Initial [place] Sleepiness Scale score: 17 (in 2020) Current [place] Sleepiness Scale score: 11 (03/23/23) Allergies and Home Medications Known drug allergies: No Drug allergies reviewed: Yes Home medication list reviewed: Yes (no changes) Allergy and home medication list: Allergies No Known Drug Allergies Allergy Review of Systems Review of systems same as previous: Yes (no changes) Physical Exam Vital signs obtained and entered by: DENA Ricardo MA Blood Pressure: 128/80 (LEFT ARM) Cuff size: regular Heart Rate: 79 O2 Saturation: 97 Height: 6 ft 1 in Weight: 248 lb 6.4 oz Body Mass Index: 32.8 BMI Classification: Obese Impression and Plan 1. Obstructive Sleep Apnea-Hypopnea Syndrome, mild, with good treatment compliance and good apnea control. On CPAP therapy, the patient has better sleep quality and is more rested overall. He feels his therapy is going well and he is not having any significant issues with mask or machine. He had turned his climate controls back to auto and it is working well. He denies any questions today. Patient's apnea severity and rationale for treatment to reduce apnea, improve sleep quality and reduce cardiovascular and cerebrovascular events was reviewed. I also reviewed the benefit of consistent device use of CPAP for depression. 2. Obesity, unspecified. Currently patients BMI is 32.8. Obesity increases the risk of apnea, CPAP pressure requirements and overall health risks especially cardiovascular and diabetes. Thus patient is advised to lose weight. * Continue auto CPAP pressure at 6-10 cmH2O * Notify me if snoring with mask or feeling that the pressure is too much or too little * Attempt to lose weight * Call this office if any problems using CPAP * Return for follow up in 3 months, or sooner if concerns arise Counseling Topics: Spare mask, Weight loss health impact Visit Type: In Office Time Spent with Patient (minutes): 20 Provider Statement: I spent 100% of the Face to Face Visit with the patient with greater than 50% spent counseling the patient and coordination of care.
[2023-03-23 08:53] VITALS: BP 128/80
== END 2023-03-23 08:30 | disposition home or self-care (01) ==
LOC: SC 08:29
PROVIDERS: ATTEND Nurse Practitioner Family
DX: G47.33 Obstructive sleep apnea (adult) (pediatric) (principal); E66.9 Obesity, unspecified; Z68.32 Body mass index [BMI] 32.0-32.9, adult
CPT/HCPCS: 99212; 99213

== ENCOUNTER 2023-12-21 11:30 | Outpatient (CLI) | payer OTHER ==
--- NOTE | 2023-12-22 00:52 | XRAY Report ---
PROCEDURE: Chest 2V INDICATIONS: COUGH TECHNIQUE: 2 views of the chest were acquired. COMPARISON: 08/29/2016 FINDINGS: Surgical changes and devices: None. Lungs and pleura: Small alveolar opacity in the left lower lung, retrocardiac region. No pleural eff usion or pneumothorax. Mediastinum: Mediastinal contours appear normal. Heart size is normal. Bones and chest wall: No suspicious bony lesions. Overlying soft tissues appear unremarkable. IMPRESSION: Left lower lung parenchymal opacity. 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 Reviewed by: Alma García MD on 12/22/2023 12:50 AM PDT Approved by: Alma García MD on 12/22/2023 12:50 AM PDT Station ID: [id number]
== END 2023-12-21 11:45 | disposition home or self-care (01) ==
LOC: DI.N 11:30
PROVIDERS: ATTEND Family Medicine
DX: R91.8 Other nonspecific abnormal finding of lung field (principal)

== ENCOUNTER 2024-01-18 16:32 | Outpatient (CLI) | payer OTHER ==
--- NOTE | 2024-01-18 17:02 | CT Report ---
Chest WO: 01/18/2024 4:48 PM PDT CLINICAL HISTORY: 43 years of age, Male, ABN XRAY. COMPARISON: Chest radiograph on 12/21/2023. TECHNIQUE: A CT scan of the chest was performed. Intravenous contrast media was not administered. Im ages were recorded and evaluated at appropriate window settings. Reformats: axial MIP of the chest, c oronal and sagittal. For radiation dose reduction, the following was used: automated exposure control , adjustment of mA and/or kV according to patient size. FINDINGS: Lungs:Mild discoid atelectasis in the left lower lobe. No pleural effusion or pneumothorax. No pulmon [place] edema. No suspicious pulmonary nodule. Soft tissue/mediastinum/heart: Heart is normal in size. No pericardial effusion.No significant madden ry artery calcification. Normal thoracic aorta. No thoracic aortic aneurysm. No mediastinal, hilar, or axillary lymphadenopathy. Visualized portion of the upper abdomen:Unremarkable Bones: No suspicious bony lesion. IMPRESSION: 1.Mild discoid atelectasis in the left lower lobe. Underlying pneumonia cannot be excluded. Reviewed by: Minna Alvarado MD on 01/18/2024 5:01 PM PDT Approved by: Minna Alvarado MD on 01/18/2024 5:01 PM PDT Station ID: [id number]
== END 2024-01-18 16:33 | disposition home or self-care (01) ==
LOC: DI 16:32
PROVIDERS: ATTEND Nurse Practitioner Primary Care
DX: J98.11 Atelectasis (principal)